=== PATIENT | male | born 1990 | race Hispanic/Latino ===

== ENCOUNTER 2018-12-22 17:13 | Inpatient (IN) | payer SELFPAY ==
[~2018-12-22] VITALS: Ht 177.8 cm; Wt 85.2 kg
[2018-12-22] MEDS ORDERED: MORPHINE SULFATE 4 MG/1ML SYG ONE ×2 (17:48→22:33)
[2018-12-22] MEDS ORDERED: ONDANSETRON HCL 4 MG/2 ML VIAL ONE (17:48)
[2018-12-22] MEDS ORDERED: SODIUM CHLORIDE 0.9% 1000ML 1,000 ML IV ONE (17:48)
[2018-12-22 17:53] LABS: BASOPHILS % (AUTO) 0.6 % (0.0-5.0); EOSINOPHILS % (AUTO) 0.7 % (0.0-8.0); HEMATOCRIT 45.2 % (42-54); LYMPHOCYTES % (AUTO) 8.3 % (21.0-51.0); MEAN CORPUSCULAR HEMOGLOBIN 31.7 pg (27.0-33.0); MEAN CORPUSCULAR VOLUME 93.3 fL (79-99); NEUTROPHILS % (AUTO) 83.4 % (40.0-77.0); PLATELET COUNT (AUTO) 284 K/uL (130-400); RED BLOOD CELL COUNT(AUTO) 4.84 MIL/uL (4.50-6.20); RED CELL DISTRIBUTION WIDTH 12.7 % (11.0-15.5); WHITE BLOOD COUNT (AUTO) 16.8 K/uL (4.8-10.8)
[2018-12-22 17:57] LABS: APPEARANCE,URINE Clear (CLEAR); BILIRUBIN,URINE Negative (NEGATIVE); COLOR,URINE Yellow (YELLOW); GLUCOSE, URINE (UA) Negative (NEGATIVE); KETONES,URINE Negative (NEGATIVE); LEUKOCYTE ESTERASE ,URINE Negative (NEGATIVE); NITRATE,URINE Negative (NEGATIVE); OCCULT BLOOD,URINE Negative (NEGATIVE); PROTEIN,URINE Negative (NEGATIVE)
[2018-12-22 18:04] LABS: CREATININE 1.1 mg/dL (0.5-1.5); POTASSIUM 3.7 mmol/L (3.5-5.1)
[2018-12-22 18:09] LABS: ALBUMIN 4.1 g/dL (3.5-5.0); BILIRUBIN,TOTAL 0.8 mg/dL (0.2-1.0)
[2018-12-22] MEDS ORDERED: IOHEXOL-350 75 ML VIAL IV ONE (18:27)
[2018-12-22] MEDS ORDERED: ZOSYN 3.375GM+NS 50ML 50 ML IV ONE (19:55)
[2018-12-22 23:10] VITALS: BP 135/92
[2018-12-22] MEDS ORDERED: LACTATED RINGERS 1000ML 1,000 ML IV ONE (23:35)
[2018-12-23] VITALS (23 sets, daily range): BP systolic 96–144; BP diastolic 52–102
[2018-12-23] MEDS ORDERED: ZOSYN 3.375GM+NS 50ML 50 ML IV ONE (02:48)
[2018-12-23] MEDS ORDERED: ONDANSETRON HCL 4 MG/2 ML VIAL IVP PRN (06:30)
[2018-12-23] MEDS ORDERED: MORPHINE SULFATE 4 MG/1ML SYG IVP PRN (06:30)
[2018-12-23] MEDS: LACTATED RINGERS 1000ML 1,000 ML IV SCH ×3 (06:30→22:30)
--- NOTE | 2018-12-23 10:08 | NUR ---
POTENTIAL FOR BLEEDING: SHAVED ABDOMEN PER KAYLEEN RAMIREZ.
[2018-12-23] MEDS ORDERED: BUPIVACAINE/PF 0.5% 30ML VIAL ONE (10:43)
--- NOTE | 2018-12-23 10:45 | NUR ---
PATIENT TAKEN DOWNSTAIRS FOR PROCEDURE . AWAKE ALERT, VOICES NO COMPLAINTS
[2018-12-23] MEDS ORDERED: DEXAMETHASONE SOD PHOSPHATE 10MG/ML 1ML VIAL ONE (10:55)
[2018-12-23] MEDS ORDERED: ONDANSETRON HCL 4 MG/2 ML VIAL ONE ×2 (10:55→10:56)
[2018-12-23] MEDS ORDERED: LIDOCAINE PF 2% 5ML ABBOJECT ONE (10:55)
[2018-12-23] MEDS ORDERED: PROPOFOL 10 MG/ML 20ML VIAL IV ONE ×2 (10:55→12:03)
[2018-12-23] MEDS ORDERED: MIDAZOLAM HCL 1 MG/ML 2ML VIAL ONE ×2 (10:55→12:15)
[2018-12-23] MEDS ORDERED: FENTANYL CITRATE PF 50 MCG/1 ML 2ML VIAL ONE (10:55)
[2018-12-23] MEDS ORDERED: ROCURONIUM 10MG/1ML SYR 10 MG/ML ML ONE ×2 (10:56→11:23)
[2018-12-23] MEDS ORDERED: SUCCINYLCHOLINE 200MG/10ML SYR ONE (10:56)
[2018-12-23] MEDS ORDERED: GLYCOPYRROLATE 1 MG/5 ML SYRINGE ONE (11:50)
[2018-12-23] MEDS ORDERED: NEOSTIGMINE 5MG/5ML SYR IV ONE ×2 (11:50→12:01)
[2018-12-23] MEDS ORDERED: MEPERIDINE-PF 25 MG/ML SYG ONE (12:23)
--- NOTE | 2018-12-23 13:15 | NUR ---
PATIENT ARRIVED. AWAKE AND ALERT, VOICES NO COMPLAINT. THREE PUNCTURE SITES TO ABD WITH [employer] AND INTACT. NO BLEEDING NOTED.
[2018-12-23] MEDS: ZOSYN 3.375GM+NS 50ML 50 ML IV SCH ×2 (13:45→22:25)
--- NOTE | 2018-12-23 16:55 | NUR ---
[facility] CM met with pt discussed dc plans. Pt is independent prior to admission, lives at home with spouse and children. Denies any equipments/services. Pt feels safe to go back home, still drives and works, spouse and mother able to assist with transportation and needs as necessary. DC plan to home once stable. Pt is self pay, [facility] assisting, given [employer] packet. CM to cont to follow up. Addendum: 12/23/18 at 1700 by SHWETHA BOOTH LVN CM Amended: Links added.
[2018-12-23] MEDS ORDERED: ACETAMINOPHEN-CODEINE 300/30MG TAB PO PRN (17:00)
[2018-12-24 03:30] VITALS: BP 99/58
[2018-12-24] MEDS: ZOSYN 3.375GM+NS 50ML 50 ML IV SCH ×2 (05:15→13:00)
[2018-12-24 05:21] LABS: HEMATOCRIT 38.4 % (42-54); MEAN CORPUSCULAR HEMOGLOBIN 31.9 pg (27.0-33.0); MEAN CORPUSCULAR HGB CONC 34.2 g/dL (32.0-36.0); MEAN CORPUSCULAR VOLUME 93.4 fL (79-99); PLATELET COUNT (AUTO) 237 K/uL (130-400); RED BLOOD CELL COUNT(AUTO) 4.12 MIL/uL (4.50-6.20); RED CELL DISTRIBUTION WIDTH 12.9 % (11.0-15.5); WHITE BLOOD COUNT (AUTO) 11.1 K/uL (4.8-10.8)
[2018-12-24 05:29] LABS: CREATININE 1.2 mg/dL (0.5-1.5); POTASSIUM 3.7 mmol/L (3.5-5.1)
[2018-12-24] MEDS: LACTATED RINGERS 1000ML 1,000 ML IV SCH ×2 (06:51→14:30)
[2018-12-24 08:30] VITALS: BP 126/80
[2018-12-24 11:00] VITALS: BP 114/76
[2018-12-24 16:00] VITALS: BP 105/62
--- NOTE | 2018-12-24 19:04 | NUR ---
DISCHARGE INSTRUCTIONS GIVEN. PRESCRIPTION GIVEN AND INSTRUCTED TO MAKE APPOINTMENT WITH DR. MARIE DUKE TOMORROW. ALL QUESTIONS ANSWERED. PATIENT TO FOLLOW WITH DR. DUKE.
== END 2018-12-24 18:05 | disposition home or self-care (01) | DRG 343 ==
LOC: EDH 17:13 → EDHIP 17:14 → 3AH 23:08
PROVIDERS: ADMIT Surgery; ATTEND Surgery
PROC: 0DTJ4ZZ Resection of Appendix, Percutaneous Endoscopic Approach (ICD-10-PCS; principal; 2018-12-23 11:22)
DX: K35.80 Unspecified acute appendicitis (principal)
CPT/HCPCS: 36415; 74177; 80048; 80053; 81003; 82150; 83690; 85025; 85027; 88304; A4344; G0378; J0330; J1100; J2001; J2175; J2250; J2270; J2405; J2543; J2704; J2710; J3010; J3490; J7030; J7120; Q9967